=== PATIENT | male | born 1995 | race Asian ===

== ENCOUNTER 2024-04-29 14:01 | Emergency (ER) | payer OTHER ==
[~2024-04-29] VITALS: Ht 177.8 cm; Wt 102.0 kg
[2024-04-29 14:26] VITALS: TEMP 98.2; O2SAT 98
[2024-04-29] MEDS ORDERED: ACET-2708 MT (15:36)
[2024-04-29] MEDS: ACETAMINOPHEN 500MG TABLET PO ONE (16:41)
[2024-04-29] MEDS: METOCLOPRAMIDE HCL 10MG TABLET PO ONE (16:41)
[2024-04-29 16:44] VITALS: BP 139/91; PULSE 87; RESP 16; O2SAT 99
== END 2024-04-29 16:50 | disposition home or self-care (01) ==
LOC: ER 14:01
DX: R51.9 Headache, unspecified (principal); Z88.0 Allergy status to penicillin
CPT/HCPCS: 99283; J8597